=== PATIENT | female | born 1945 | race Caucasian/White ===

== ENCOUNTER 2017-07-27 21:17 | Emergency (ER) | payer MEDICARE ==
--- NOTE | 2017-07-27 22:04 | NUR ---
CALLED PT NAME X3 IN WR. NO RESPONSE.
--- NOTE | 2017-07-27 22:05 | NUR ---
PT IN RESTROOM AT THIS TIME.
--- NOTE | 2017-07-27 22:06 | NUR ---
PT LEFT WIHTOUT BEING SEEN. PT STATES " I DO NOT WANT TO WAIT"
== END 2017-07-27 22:08 | disposition left against medical advice (07) ==
LOC: EDBD 21:19 → ER 21:19
DX: Z53.21 Procedure and treatment not carried out due to patient leaving prior to being seen by health care provider (principal)